=== PATIENT | male | born 1985 | race Native Hawaiian/Other Pacific Islander ===

== ENCOUNTER 2017-12-25 11:00 | Emergency (ER) | payer OTHER ==
[~2017-12-25] VITALS: Ht 170.2 cm; Wt 81.6 kg
== END 2017-12-25 12:05 | disposition home or self-care (01) ==
LOC: ED 11:00
DX: S93.402A Sprain of unspecified ligament of left ankle, initial encounter (principal); W17.2XXA Fall into hole, initial encounter
CPT/HCPCS: 99282; J1885